=== PATIENT | male | born 1960 | race Caucasian/White ===

== ENCOUNTER → 2019-12-26 08:06 | Outpatient (BNVA) | payer OTHER, SELFPAY | PROVIDERS: Family Provider Family Medicine; PCP Family Medicine; Visit Provider Nurse Practitioner Psychiatric/Mental Health | DX: F33.1 Major depressive disorder, recurrent, moderate (principal); F41.1 Generalized anxiety disorder; G47.00 Insomnia, unspecified | CPT/HCPCS: 99213 ==

== ENCOUNTER → 2020-10-01 07:33 | Outpatient (BNVA) | payer OTHER, SELFPAY | PROVIDERS: Family Provider Family Medicine; PCP Family Medicine; Visit Provider Nurse Practitioner Psychiatric/Mental Health | DX: F33.42 Major depressive disorder, recurrent, in full remission (principal); F41.1 Generalized anxiety disorder; G47.00 Insomnia, unspecified | CPT/HCPCS: 99213 ==

== ENCOUNTER 2021-01-10 09:13 | Emergency (ER) | payer OTHER, SELFPAY ==
[2021-01-10 09:15] VITALS: BP 191/91; PULSE 82; RESP 16; TEMP 36.3; O2SAT 99; BMI 27.1
--- NOTE | 2021-01-10 09:38 | ED_ITS ---
HPI - General Adult General: Chief complaint: General Medical Stated complaint: High BP Time Seen by Provider: 01/10/21 09:16 History of Present Illness: HPI narrative: 60 yo make present with elevated BP and generally not feeelingwell - feels weird . Denies headache chest pain, changes in vision, no dyspnea. Previously been treated for blood pressure but was is no longer following, is not on any medication. Denies any chest pain or shortness of breath with it no localizing or focal neurologic symptoms no vision changes. Onset (ago): hour(s) Location: head Severity: mild Relieving factors: none Exacerbating factors: none Associated symptoms: Deny chest pain, confusion, cough, diaphoresis, decreased appetite, dyspnea, fevers/chills, headache(s), malaise, nausea, rash, palpitations, short of breath, syncope or vomiting Treatments prior to arrival: none Review of Systems Const: Denies: malaise ENMT: Denies: throat pain, ear or mastoid pain, nasal discharge or nasal congestion Card: Denies: chest pain, palpitations or syncope Resp: Denies: dyspnea GI: Denies: nausea or vomiting : Denies: flank pain, dysuria, urinary frequency or urinary urgency Skin/Breast: Denies: rash Neuro: Denies: headache(s) or confusion PFSH ED PFSH: Medical History Complaint of insomnia Generalized anxiety disorder Major depressive disorder in full remission Social History Smoking and tobacco status: former smoker Physical Exam Const: COMMON NORMALS: no acute distress GENERAL APPEARANCE: cooperative and comfortable ORIENTATION/CONSCIOUSNESS: Yes awake, Yes oriented to person, Yes oriented to place and Yes oriented to time HENMT: COMMON NORMALS: normocephalic, atraumatic and hearing grossly normal bilaterally HEAD & SCALP: normocephalic and atraumatic Neck/C-Spine: COMMON NORMALS: no JVD Resp: COMMON NORMALS: normal respiratory effort, No retractions, No use of accessory muscles and clear to auscultation bilaterally AUSCULTATION: clear to auscultation bilaterally Cardio: COMMON NORMALS: no JVD, regular rate, regular rhythm and No murmurs present (Cardio) RATE: regular rate RHYTHM: regular rhythm GI: COMMON NORMALS: Soft to palpation and No hepatosplenomegaly present AUSCULTATION: Yes normoactive bowel sounds PALPATION: Yes Soft to palpation, No Tenderness to palpation present (GI), No Guarding due to palpation present (GI) and Yes No hepatosplenomegaly present Extremity: COMMON NORMALS: normal to inspection, capillary refill normal, no clubbing, cyanosis or edema, no calf tenderness and no pedal edema Neuro: SENSORIUM/ORIENTATION: Yes oriented to person, Yes oriented to place and Yes oriented to time Skin: COMMON NORMALS: no rashes or lesions noted GENERAL SKIN EXAM: no rashes or lesions noted Course Vital Signs: Vital signs: Vital Signs Temperature 97.3 F L 01/10/21 09:15 Pulse Rate 77 01/10/21 12:44 Respiratory Rate 18 01/10/21 12:44 Blood Pressure 155/87 01/10/21 12:44 Pulse Oximetry 97 01/10/21 12:44 [facility] - General Adult Lab Data: Labs: Lab Results 01/10/21 01/10/21 01/10/21 Range/Units 09:58 09:58 09:58 WBC 4.3 (4.0-10.0) 10^3/ uL RBC 4.59 (4.1-5.3) 10^6/u L Hgb 14.1 (11.7-16.6) g/dL Hct 42.6 (42.0-52.0) % MCV 92.8 (80-94) fL MCH 30.7 (28.0-34.0) pg MCHC 33.1 (30.0-36.0) g/dL RDW 12.4 (12.1-15.1) % Plt Count 303 (130-400) 10^3/c mm MPV 9.0 (7.4-10.4) fL Neut % (Auto) 57.4 % Lymph % (Auto) 24.0 % [place] % (Auto) 11.3 % Eos % (Auto) 6.4 % Baso % (Auto) 0.9 % Neut # (Auto) 2.44 (1.8-7.7) 10^3/u L Lymph # (Auto) 1.0 (0.8-4.8) 10^3/u L [place] # (Auto) 0.5 (0.2-0.9) 10^3/u L Eos # (Auto) 0.3 (0.0-0.8) 10^3/u L Baso # (Auto) 0.0 (0.0-0.1) 10^3/u L Nucleated RBC % (a uto) 0 % Nucleated RBCs # 0.0 /100WBC Sodium 138 (136-145) mmol/L Potassium 4.3 (3.5-5.1) mmol/L Chloride 102 (98-107) mmol/L Carbon Dioxide 26 (22-29) mmol/L Anion Gap 14.3 (5-19) BUN 15 (6-20) mg/dL Creatinine 0.8 (0.7-1.2) mg/dL GFR Calculation 98.9 (90-130) mL/min Glucose 103 (65-115) mg/dL Calculated Osmolal ity 287 (285-295) mOsm/k g Calcium 9.1 (8.5-10.5) mg/dL Total Bilirubin 0.3 (0.15-1.2) mg/dL AST 18 (0-40) U/L ALT 19 (0-41) U/L Alkaline Phosphata se 105 (40-130) IU/L Troponin T Baselin e 6 (0-15) ng/L Troponin T 120 Min g[place] (0-15) ng/L Delta Troponin T (0-10) ABS# Total Protein 6.8 (6.6-8.7) g/dL Albumin 4.5 (3.5-5.2) g/dL Globulin 2.3 (1.3-4.6) g/dL 01/10/21 Range/Units 12:00 WBC (4.0-10.0) 10^3/ uL RBC (4.1-5.3) 10^6/u L Hgb (11.7-16.6) g/dL Hct (42.0-52.0) % MCV (80-94) fL MCH (28.0-34.0) pg MCHC (30.0-36.0) g/dL RDW (12.1-15.1) % Plt Count (130-400) 10^3/c mm MPV (7.4-10.4) fL Neut % (Auto) % Lymph % (Auto) % [place] % (Auto) % Eos % (Auto) % Baso % (Auto) % Neut # (Auto) (1.8-7.7) 10^3/u L Lymph # (Auto) (0.8-4.8) 10^3/u L [place] # (Auto) (0.2-0.9) 10^3/u L Eos # (Auto) (0.0-0.8) 10^3/u L Baso # (Auto) (0.0-0.1) 10^3/u L Nucleated RBC % (a uto) % Nucleated RBCs # /100WBC Sodium (136-145) mmol/L Potassium (3.5-5.1) mmol/L Chloride (98-107) mmol/L Carbon Dioxide (22-29) mmol/L Anion Gap (5-19) BUN (6-20) mg/dL Creatinine (0.7-1.2) mg/dL GFR Calculation (90-130) mL/min Glucose (65-115) mg/dL Calculated Osmolal ity (285-295) mOsm/k g Calcium (8.5-10.5) mg/dL Total Bilirubin (0.15-1.2) mg/dL AST (0-40) U/L ALT (0-41) U/L Alkaline Phosphata se (40-130) IU/L Troponin T Baselin e (0-15) ng/L Troponin T 120 Min gissell 6.00 (0-15) ng/L Delta Troponin T 0 (0-10) ABS# Total Protein (6.6-8.7) g/dL Albumin (3.5-5.2) g/dL Globulin (1.3-4.6) g/dL Discharge Plan Discharge Patient Disposition: Home Clinical Impression: Benign essential HTN Condition: Stable Prescriptions: New amlodipine 5 mg tablet 5 mg PO DAILY Qty: 30 RF: 0 No Action naproxen sodium [Aleve] 220 mg tablet 220 - 440 mg PO PRN RF: 0 multivitamin Tablet 1 tab PO DAILY RF: 0 Elderberry Syrup See Rx Instructions .ROUTE .COMPLEX RF: 0 alprazolam 1 mg tablet 1 mg PO DAILY@20 RF: 0 Discharge Orders: Discharge ED (Routine); Ordered 03/06/21 Ordered By: Alex Wolf Referrals: Alex Wolf, DO [Primary Care Provider] - Discharge Diet: Usual diet Discharge Activity: Resume usual activity Patient Instructions: Opioid Safety Activity Restrictions/Additional Instructions: Follow-up with your primary care doctor within the week Coding Level of Care Code ED Military Science Instructor for Forrest Hodges
--- NOTE | 2021-01-10 09:42 | ECG_ITS ---
[facility] Test Date: 2021-01-10 Pat Name: Jayy Pierce Department: Room: Gender: Male Dovetail Machine Operator: : 1960 Requested By: Alex Lindsay Order Number: [id number] Reading MD: MAX ESQUIVEL Measurements Intervals [place] Rate: 81 P: MT: QRS: 42 QRSD: 94 T: 45 QT: 374 QTc: 435 Interpretive Statements SINUS RHYTHM POSSIBLE RIGHT VENTRICULAR CONDUCTION DELAY [RSR (QR) IN V1/V2] No previous ECG available for comparison Electronically Signed On 01-10-2021 18:45:45 VALIDATION SPECIALIST by MAX ESQUIVEL [id number]
--- NOTE | 2021-01-10 09:42 | XRR_ITS ---
PROCEDURE INFORMATION: Exam: XR Chest Exam date and time: 01/10/2021 9:52 AM Age: 60 years old Clinical indication: Chest pain; Additional info: Dyspnea/cough TECHNIQUE: Imaging protocol: XR of the chest Views: 1 view. COMPARISON: No relevant prior studies available. FINDINGS: Lungs: COPD, interstitial prominence, chronic granulomatous disease. Pleural spaces: No pleural effusion. Heart/Mediastinum: No cardiomegaly. Bones/joints: Degenerative change. XR/XR chest 1V portable [id number] IMPRESSION: COPD, interstitial prominence, chronic granulomatous disease.
[2021-01-10 09:45] VITALS: BP 167/94; PULSE 75; RESP 13; O2SAT 99
[2021-01-10] MEDS: amlodipine 5 mg Tablet PO (09:52)
[2021-01-10 09:58] VITALS: BP 154/119; PULSE 82; RESP 20; O2SAT 99
[2021-01-10 10:24] LABS: Basophils % 0.9 %; Eosinophils # 0.3 10^3/uL (0.0-0.8); Eosinophils % 6.4 %; Hematocrit 42.6 % (42.0-52.0); Hemoglobin 14.1 g/dL (11.7-16.6); Mean Corpuscular HGB Conc 33.1 g/dL (30.0-36.0); Mean Corpuscular Hemoglobin 30.7 pg (28.0-34.0); Mean Corpuscular Volume 92.8 fL (80-94); Monocytes # 0.5 10^3/uL (0.2-0.9); Monocytes % 11.3 %; Neutrophils # 2.44 10^3/uL (1.8-7.7); Neutrophils % 57.4 %; Nucleated Red Blood Cells % 0 %; Platelet Count 303 10^3/cmm (130-400); Red Blood Count 4.59 10^6/uL (4.1-5.3); Red Cell Distribution Width 12.4 % (12.1-15.1); White Blood Count 4.3 10^3/uL (4.0-10.0)
[2021-01-10 10:48] LABS: Alanine Aminotransferase 19 U/L (0-41); Albumin Level 4.5 g/dL (3.5-5.2); Alkaline Phosphatase 105 IU/L (40-130); Anion Gap 14.3 (5-19); Aspartate Amino Transferase 18 U/L (0-40); Blood Urea Nitrogen 15 mg/dL (6-20); Calcium 9.1 mg/dL (8.5-10.5); Carbon Dioxide 26 mmol/L (22-29); Chloride 102 mmol/L (98-107); Globulin 2.3 g/dL (1.3-4.6); Glomerular Filtration Rate 98.9 mL/min (90-130); Glucose 103 mg/dL (65-115); Osmolality Calculated 287 mOsm/kg (285-295); Potassium 4.3 mmol/L (3.5-5.1); Sodium 138 mmol/L (136-145); Total Bilirubin 0.3 mg/dL (0.15-1.2); Total Protein 6.8 g/dL (6.6-8.7)
[2021-01-10 10:50] LABS: Troponin(5th) Baseline 6 ng/L (0-15)
[2021-01-10 11:04] VITALS: BP 163/91; PULSE 68; RESP 20; O2SAT 97
--- NOTE | 2021-01-10 11:42 | ECG_ITS ---
[facility] Test Date: 2021-01-10 Pat Name: Jayy Pierce Department: Room: Gender: Male Event Technician: : 1960 Requested By: Alex Lindsay Order Number: [id number] Reading MD: MAX ESQUIVEL Measurements Intervals [place] Rate: 60 P: 78 MD: 168 QRS: 55 QRSD: 100 T: 57 QT: 398 QTc: 401 Interpretive Statements SINUS RHYTHM INCOMPLETE RIGHT BUNDLE BRANCH BLOCK [90+ ms QRS DURATION, TERMINAL R IN V1/V2, 40+ ms S IN I/aVL/V4/V5/V6] SEPTAL MYOCARDIAL INFARCTION , OF INDETERMINATE AGE [40+ ms Q WAVE IN V1/V2] Compared to ECG 01/10/2021 09:39:21 Incomplete right bundle-branch block now present Myocardial infarct finding now present Supraventricular rhythm no longer present Electronically Signed On 01-10-2021 18:47:25 FOREST FIRE PREVENTION MANAGER by MAX ESQUIVEL [id number]
[2021-01-10 12:04] VITALS: BP 162/87; PULSE 67; RESP 17; O2SAT 97
[2021-01-10 12:28] LABS: Troponin 5 2HR Delta 0 ABS# (0-10)
[2021-01-10 12:44] VITALS: BP 155/87; PULSE 77; RESP 18; O2SAT 97
== END 2021-01-10 12:44 | disposition home or self-care (01) ==
PROVIDERS: Emergency Provider Family Medicine; PCP Family Medicine
DX: I10 Essential (primary) hypertension (principal); Z87.891 Personal history of nicotine dependence
CPT/HCPCS: 36415; 71045; 80053; 84484; 85025; 93005; 99283

== ENCOUNTER → 2021-01-22 07:30 | Outpatient (BNVA) | payer OTHER, SELFPAY | PROVIDERS: Family Provider Family Medicine; PCP Family Medicine; Visit Provider Nurse Practitioner Psychiatric/Mental Health | DX: F31.81 Bipolar II disorder (principal); F41.1 Generalized anxiety disorder; G47.00 Insomnia, unspecified | CPT/HCPCS: 99214 ==

== ENCOUNTER → 2021-02-19 07:40 | Outpatient (BNVA) | payer OTHER, SELFPAY | PROVIDERS: PCP Family Medicine; Visit Provider Nurse Practitioner Psychiatric/Mental Health | DX: F31.81 Bipolar II disorder (principal); F41.1 Generalized anxiety disorder; G47.00 Insomnia, unspecified; Z03.89 Encounter for observation for other suspected diseases and conditions ruled out | CPT/HCPCS: 99214 ==

== ENCOUNTER → 2021-03-30 07:28 | Outpatient (BNVA) | payer OTHER, SELFPAY | PROVIDERS: PCP Family Medicine; Visit Provider Nurse Practitioner Psychiatric/Mental Health | DX: F31.81 Bipolar II disorder (principal); F41.1 Generalized anxiety disorder; G47.00 Insomnia, unspecified | CPT/HCPCS: 99214 ==

== ENCOUNTER 2021-09-19 13:40 | Emergency (ER) | payer OTHER, SELFPAY ==
[2021-09-19 13:53] VITALS: BP 177/111; PULSE 79; RESP 15; TEMP 36.7; O2SAT 98; BMI 26.0
--- NOTE | 2021-09-19 13:54 | ED_ITS ---
Documented by User: Teto Anaya MD 09/19/21 18:01 HPI - Chest Pain General: Chief Complaint: Chest Pain Stated Complaint: Chest Pain Time Seen by Provider: 09/19/21 13:53 History of Present Illness: HPI narrative: 61-year-old male presents with chest pain. States this started this morning. Describes burning-like sensation. Denies any lower extremity pain or swelling. Denies any radiation to the back. Is not exertional or pleuritic. Denies any fever cough or chills. Denies previous history of CAD. Review of Systems Narrative: - CONSTITUTIONAL: Denies weight loss, fever and chills. - HEENT: Denies changes in vision and hearing. - RESPIRATORY: Denies SOB and cough. - CV: As above - GI: Denies abdominal pain, nausea, vomiting and diarrhea. - : Denies dysuria and urinary frequency. - MSK: Denies myalgia and joint pain. - SKIN: Denies rash and pruritus. - NEUROLOGICAL: Denies headache, weakness, numbness and syncope. - PSYCHIATRIC: Denies suicidal ideation [facility] ED PFSH: Medical History (Updated 09/19/21 @ 19:06 by Cuba Smith DO) Bipolar II disorder Mixed episodes Complaint of insomnia Generalized anxiety disorder Psychiatric care Social History Smoking and tobacco status: former smoker Physical Exam Narrative: EXAM NARRATIVE: - GENERAL: Alert and oriented x 3. No acute distress. Well-nourished. - EYES: EOMI. Anicteric. - HENT: Atraumatic, no C-spine tenderness. Moist mucous membranes. No scleral icterus. No cervical lymphadenopathy. - LUNGS: Clear to auscultation bilaterally. No accessory muscle use. Equal lung sounds bilaterally. No respiratory distress. - CARDIOVASCULAR: Regular rate and rhythm. No murmur. No JVD. - ABDOMEN: Soft, non-tender and non-distended. Negative CVA tenderness bilaterally, no rebound or guarding, negative Kennedy sign. No palpable masses. - EXTREMITIES: No edema. Non-tender. - SKIN: No rashes or lesions. Warm. - NEUROLOGIC: No meningismus or focal neurological deficits. CN II-XII grossly intact. - PSYCHIATRIC: Anxious Course Vital Signs: Vital signs: Vital Signs Temperature 98.0 F 09/19/21 13:53 Pulse Rate 62 09/19/21 17:36 Respiratory Rate 16 09/19/21 17:36 Blood Pressure 148/92 09/19/21 17:36 Pulse Oximetry 97 09/19/21 17:36 MDM - Chest Pain MDM Narrative: Medical decision making narrative: 61-year-old male presents due to chest pain. Physical exam unremarkable. Patient is hemodynamically stable afebrile nontoxic-appearing. Initial EKG and troponin do not reveal any sign of acute ischemia or other acute abnormality. Remainder of lab work is unremarkable. Second troponin is currently pending. X-ray does not reveal pneumothorax or consolidation. Patient signed out to Dr. Smith. Lab Data: Labs: Lab Results 09/19/21 09/19/21 09/19/21 14:45 14:45 14:45 WBC 5.1 10^3/uL 10^3/ uL (4.0-10.0) RBC 3.71 10^6/uL L 10 ^6/uL (4.1-5.3) Hgb 11.7 g/dL g/dL (11.7-16.6) Hct 34.4 % L % (42.0-52.0) MCV 92.7 fl fl (80-94) MCH 31.5 pg pg (28.0-34.0) MCHC 34.0 g/dL g/dL (30.0-36.0) RDW 12.5 % % (12.1-15.1) Plt Count 842 10^3/cmm H 10 ^3/cmm (130-400) MPV 9.3 fL fL (7.4-10.4) Neut % (Auto) 69.3 % % Lymph % (Auto) 20.5 % % [place] % (Auto) 8.8 % % Eos % (Auto) 0.6 % % Baso % (Auto) 0.6 % % Neut # (Auto) 3.56 10^3/uL 10^3 /uL (1.8-7.7) Lymph # (Auto) 1.1 10^3/uL 10^3/ uL (0.8-4.8) [place] # (Auto) 0.5 10^3/uL 10^3/ uL (0.2-0.9) Eos # (Auto) 0.0 10^3/uL 10^3/ uL (0.0-0.8) Baso # (Auto) 0.0 10^3/uL 10^3/ uL (0.0-0.1) Nucleated RBC % (a uto) 0 % % Nucleated RBCs # 0.0 /100WBC /100W BC D-Dimer <= 0.27 ug/mIFEU ug/mIFEU (0-0.59) Sodium Cancelled Potassium Cancelled Chloride Cancelled Carbon Dioxide Cancelled Anion Gap Cancelled BUN Cancelled Creatinine Cancelled GFR Calculation Cancelled Glucose Cancelled Calculated Osmolal ity Cancelled Calcium Cancelled Total Bilirubin Cancelled AST Cancelled ALT Cancelled Alkaline Phosphata se Cancelled Troponin T Baselin e Troponin T 120 Min [place] Delta Troponin T NT-Pro-B Natriuret Pep Cancelled Total Protein Cancelled Albumin Cancelled Globulin Cancelled Lipase Cancelled 09/19/21 09/19/21 09/19/21 14:45 15:54 15:54 WBC RBC Hgb Hct MCV MCH MCHC RDW Plt Count MPV Neut % (Auto) Lymph % (Auto) [place] % (Auto) Eos % (Auto) Baso % (Auto) Neut # (Auto) Lymph # (Auto) [place] # (Auto) Eos # (Auto) Baso # (Auto) Nucleated RBC % (a uto) Nucleated RBCs # D-Dimer Sodium 139 mmol/L mmol/L (136-145) Potassium 3.8 mmol/L mmol/L (3.5-5.1) Chloride 102 mmol/L mmol/L (98-107) Carbon Dioxide 24 mmol/L mmol/L (22-29) Anion Gap 16.8 (5-19) BUN 15 mg/dL mg/dL (8-23) Creatinine 0.7 mg/dL mg/dL (0.7-1.2) GFR Calculation 115.0 mL/min mL/m in (90-130) Glucose 109 mg/dL mg/dL (65-115) Calculated Osmolal ity 289 mOsm/kg mOsm/ kg (285-295) Calcium 9.3 mg/dL mg/dL (8.5-10.5) Total Bilirubin 0.5 mg/dL mg/dL (0.15-1.2) AST 13 U/L U/L (0-40) ALT 14 U/L U/L (0-41) Alkaline Phosphata se 108 IU/L IU/L (40-130) Troponin T Baselin e Cancelled 6 ng/L ng/L (0-15) Troponin T 120 Min [place] Delta Troponin T NT-Pro-B Natriuret Pep 23 pg/mL pg/mL (0-125) Total Protein 6.9 g/dL g/dL (6.6-8.7) Albumin 4.6 g/dL g/dL (3.5-5.2) Globulin 2.3 g/dL g/dL (1.3-4.6) Lipase 20 U/L U/L (13-60) 09/19/21 17:51 WBC RBC Hgb Hct MCV MCH MCHC RDW Plt Count MPV Neut % (Auto) Lymph % (Auto) [place] % (Auto) Eos % (Auto) Baso % (Auto) Neut # (Auto) Lymph # (Auto) [place] # (Auto) Eos # (Auto) Baso # (Auto) Nucleated RBC % (a uto) Nucleated RBCs # D-Dimer Sodium Potassium Chloride Carbon Dioxide Anion Gap BUN Creatinine GFR Calculation Glucose Calculated Osmolal ity Calcium Total Bilirubin AST ALT Alkaline Phosphata se Troponin T Baselin e Troponin T 120 Min douglas 6.53 ng/L ng/L (0-15) Delta Troponin T 0.53 ABS# ABS# (0-10) NT-Pro-B Natriuret Pep Total Protein Albumin Globulin Lipase EKG Data^: EKG 1: Other EKG comments: Normal sinus rhythm, rate of 79, incomplete right bundle branch block, no sign of acute ischemia or other acute abnormality. Discharge Plan Discharge Patient Disposition: Home Clinical Impression: Chest pain Qualifiers: Chest pain type: unspecified Qualified Code(s): R07.9 - Chest pain, unspecified Condition: Stable Prescriptions: New Prevacid 30 mg capsule,delayed release(DR/EC) 30 mg PO DAILY Qty: 30 RF: 0 No Action naproxen sodium [Aleve] 220 mg tablet 220 - 440 mg PO BID PRN (Reason: Pain) RF: 0 alprazolam 0.5 mg tablet 0.5 mg PO BID PRN (Reason: anxiety) Qty: 60 RF: 3 multivitamin Tablet 1 tab PO DAILY RF: 0 atorvastatin 10 mg tablet 10 mg PO DAILY RF: 0 clonidine HCl 0.2 mg tablet 0.2 mg PO BID PRN (Reason: Blood Pressure) RF: 0 methocarbamol 750 mg tablet 750 mg PO TID PRN (Reason: Pain) RF: 0 amlodipine 10 mg tablet 10 mg PO DAILY RF: 0 Discharge Orders: Discharge ED (Routine); Ordered 09/19/21 Ordered By: Cuba Smith Referrals: Alex Wolf DO [Primary Care Provider] - Patient Instructions: Chest Pain (ED) Activity Restrictions/Additional Instructions: Work-up in the emergency department today did not reveal a cause of your chest pain. Potential of a heart attack was evaluated, and was found to be not the cause. You also screened negative for a blood clot to your lung, pneumonia, a hole in your lung, etc. In some of these cases, chest discomfort may be related to your gastrointestinal system. Medication has been prescribed for this. Case management referral has been made to set up an outpatient stress test for your heart. Return for change in or worsening chest pain, worsening shortness of breath, any other concerning symptoms in the meantime. Coding Level of Care Code ED Registered Mail Clerk for Chg Fwd Documented by User: Cuba Smith DO 09/19/21 19:08 HPI - Chest Pain General: Chief Complaint: Chest Pain Stated Complaint: Chest Pain Time Seen by Provider: 09/19/21 13:53 [facility] ED PFSH: Medical History (Updated 09/19/21 @ 19:06 by Cuba Smith DO) Bipolar II disorder Mixed episodes Complaint of insomnia Generalized anxiety disorder Psychiatric care Social History Smoking and tobacco status: former smoker Course Vital Signs: Vital signs: Vital Signs Temperature 98.0 F 09/19/21 13:53 Pulse Rate 62 09/19/21 17:36 Respiratory Rate 16 09/19/21 17:36 Blood Pressure 148/92 09/19/21 17:36 Pulse Oximetry 97 09/19/21 17:36 MDM - Chest Pain MDM Narrative: Medical decision making narrative: 61-year-old male checked out to me by the previous physician at shift change. This gentleman has nonexertional chest discomfort. It is somewhat atypical in nature. His EKGs showed no acute ST changes. His troponin at 2 hours did not move, and remains normal. He will be allowed discharge Lab Data: Labs: Lab Results 09/19/21 09/19/21 09/19/21 14:45 14:45 14:45 WBC 5.1 10^3/uL 10^3/ uL (4.0-10.0) RBC 3.71 10^6/uL L 10 ^6/uL (4.1-5.3) Hgb 11.7 g/dL g/dL (11.7-16.6) Hct 34.4 % L % (42.0-52.0) MCV 92.7 fl fl (80-94) MCH 31.5 pg pg (28.0-34.0) MCHC 34.0 g/dL g/dL (30.0-36.0) RDW 12.5 % % (12.1-15.1) Plt Count 842 10^3/cmm H 10 ^3/cmm (130-400) MPV 9.3 fL fL (7.4-10.4) Neut % (Auto) 69.3 % % Lymph % (Auto) 20.5 % % [place] % (Auto) 8.8 % % Eos % (Auto) 0.6 % % Baso % (Auto) 0.6 % % Neut # (Auto) 3.56 10^3/uL 10^3 /uL (1.8-7.7) Lymph # (Auto) 1.1 10^3/uL 10^3/ uL (0.8-4.8) [place] # (Auto) 0.5 10^3/uL 10^3/ uL (0.2-0.9) Eos # (Auto) 0.0 10^3/uL 10^3/ uL (0.0-0.8) Baso # (Auto) 0.0 10^3/uL 10^3/ uL (0.0-0.1) Nucleated RBC % (a uto) 0 % % Nucleated RBCs # 0.0 /100WBC /100W BC D-Dimer <= 0.27 ug/mIFEU ug/mIFEU (0-0.59) Sodium Cancelled Potassium Cancelled Chloride Cancelled Carbon Dioxide Cancelled Anion Gap Cancelled BUN Cancelled Creatinine Cancelled GFR Calculation Cancelled Glucose Cancelled Calculated Osmolal ity Cancelled Calcium Cancelled Total Bilirubin Cancelled AST Cancelled ALT Cancelled Alkaline Phosphata se Cancelled Troponin T Baselin e Troponin T 120 Min [place] Troponin T NT-Pro-B Natriuret Pep Cancelled Total Protein Cancelled Albumin Cancelled Globulin Cancelled Lipase Cancelled 09/19/21 09/19/21 09/19/21 14:45 15:54 15:54 WBC RBC Hgb Hct MCV MCH MCHC RDW Plt Count MPV Neut % (Auto) Lymph % (Auto) [place] % (Auto) Eos % (Auto) Baso % (Auto) Neut # (Auto) Lymph # (Auto) [place] # (Auto) Eos # (Auto) Baso # (Auto) Nucleated RBC % (a uto) Nucleated RBCs # D-Dimer Sodium 139 mmol/L mmol/L (136-145) Potassium 3.8 mmol/L mmol/L (3.5-5.1) Chloride 102 mmol/L mmol/L (98-107) Carbon Dioxide 24 mmol/L mmol/L (22-29) Anion Gap 16.8 (5-19) BUN 15 mg/dL mg/dL (8-23) Creatinine 0.7 mg/dL mg/dL (0.7-1.2) GFR Calculation 115.0 mL/min mL/m in (90-130) Glucose 109 mg/dL mg/dL (65-115) Calculated Osmolal ity 289 mOsm/kg mOsm/ kg (285-295) Calcium 9.3 mg/dL mg/dL (8.5-10.5) Total Bilirubin 0.5 mg/dL mg/dL (0.15-1.2) AST 13 U/L U/L (0-40) ALT 14 U/L U/L (0-41) Alkaline Phosphata se 108 IU/L IU/L (40-130) Troponin T Baselin e Cancelled 6 ng/L ng/L (0-15) Troponin T 120 Min [place] Troponin T NT-Pro-B Natriuret Pep 23 pg/mL pg/mL (0-125) Total Protein 6.9 g/dL g/dL (6.6-8.7) Albumin 4.6 g/dL g/dL (3.5-5.2) Globulin 2.3 g/dL g/dL (1.3-4.6) Lipase 20 U/L U/L (13-60) 09/19/21 17:51 WBC RBC Hgb Hct MCV MCH MCHC RDW Plt Count MPV Neut % (Auto) Lymph % (Auto) [place] % (Auto) Eos % (Auto) Baso % (Auto) Neut # (Auto) Lymph # (Auto) [place] # (Auto) Eos # (Auto) Baso # (Auto) Nucleated RBC % (a uto) Nucleated RBCs # D-Dimer Sodium Potassium Chloride Carbon Dioxide Anion Gap BUN Creatinine GFR Calculation Glucose Calculated Osmolal ity Calcium Total Bilirubin AST ALT Alkaline Phosphata se Troponin T Baselin e Troponin T 120 Min d[place]las 6.53 ng/L ng/L (0-15) Delta Troponin T 0.53 ABS# ABS# (0-10) NT-Pro-B Natriuret Pep Total Protein Albumin Globulin Lipase Discharge Plan Discharge Patient Disposition: Home Clinical Impression: Chest pain Qualifiers: Chest pain type: unspecified Qualified Code(s): R07.9 - Chest pain, unspecified Condition: Stable Prescriptions: New Prevacid 30 mg capsule,delayed release(DR/EC) 30 mg PO DAILY Qty: 30 RF: 0 No Action naproxen sodium [Aleve] 220 mg tablet 220 - 440 mg PO BID PRN (Reason: Pain) RF: 0 alprazolam 0.5 mg tablet 0.5 mg PO BID PRN (Reason: anxiety) Qty: 60 RF: 3 multivitamin Tablet 1 tab PO DAILY RF: 0 atorvastatin 10 mg tablet 10 mg PO DAILY RF: 0 clonidine HCl 0.2 mg tablet 0.2 mg PO BID PRN (Reason: Blood Pressure) RF: 0 methocarbamol 750 mg tablet 750 mg PO TID PRN (Reason: Pain) RF: 0 amlodipine 10 mg tablet 10 mg PO DAILY RF: 0 Discharge Orders: Discharge ED (Routine); Ordered 09/19/21 Ordered By: Cuba Smith Referrals: Alex Wolf DO [Primary Care Provider] - Patient Instructions: Chest Pain (ED) Activity Restrictions/Additional Instructions: Work-up in the emergency department today did not reveal a cause of your chest pain. Potential of a heart attack was evaluated, and was found to be not the cause. You also screened negative for a blood clot to your lung, pneumonia, a hole in your lung, etc. In some of these cases, chest discomfort may be related to your gastrointestinal system. Medication has been prescribed for this. Case management referral has been made to set up an outpatient stress test for your heart. Return for change in or worsening chest pain, worsening shortness of breath, any other concerning symptoms in the meantime. Coding Level of Care Code ED Registered Mail Clerk for Forrest Hodges
--- NOTE | 2021-09-19 14:00 | XRR_ITS ---
PROCEDURE INFORMATION: Exam: XR Chest Exam date and time: 09/19/2021 2:00 PM Age: 61 years old Clinical indication: Pain; Chest pressure; Additional info: Cp TECHNIQUE: Imaging protocol: XR of the chest. Views: 1 view. COMPARISON: CR (CHEST, ) 01/10/2021 9:54 AM FINDINGS: Lungs: There are pulmonary parenchymal calcifications consistent with remote granulomatous organism exposure. Pleural spaces: Unremarkable. No pleural effusion. No pneumothorax. Heart/Mediastinum: Unremarkable. No cardiomegaly. Diaphragm: Mild elevation of the left hemidiaphragm. Bones/joints: Unremarkable. XR/XR chest 1V portable [id number] IMPRESSION: No evidence for acute cardiopulmonary disease. Radiation Dose CTDIVOL = (mGy): DLP = (mGy-cm)
--- NOTE | 2021-09-19 14:00 | ECG_ITS ---
[facility] Test Date: 2021-09-19 Pat Name: Jayy Pierce Department: Room: Gender: Male Handle Sewer: : 1960 Requested By: Teto Anaya Order Number: [id number] Rajput MD: Haley Crenshaw M.D. Measurements Intervals [place] Rate: 79 P: 152 ME: 170 QRS: 43 QRSD: 98 T: 79 QT: 380 QTc: 438 Interpretive Statements ECTOPIC ATRIAL RHYTHM POSSIBLE RIGHT VENTRICULAR CONDUCTION DELAY [RSR (QR) IN V1/V2] Compared to ECG 01/10/2021 11:33:03 Ectopic atrial rhythm now present Sinus rhythm no longer present Incomplete right bundle-branch block no longer present Myocardial infarct finding no longer present Electronically Signed On 09-20-2021 13:16:11 [employer]AL [employer]HER by Haley Crenshaw M.D. [id number]
[2021-09-19] MEDS: labetalol 5 mg/mL SDV 20mL 10 MG IVP (14:45)
[2021-09-19] MEDS: hyDROXYzine 25 mg Capsule PO (14:45)
[2021-09-19] MEDS: lidocaine 2% viscous 15 ML, aluminum-mag hydrox-simethicon 30 ML, sucralfate oral liq 1 GM PO (14:45)
[2021-09-19] MEDS: aspirin 81 mg Chew Tablet 324 MG PO (14:45)
[2021-09-19 14:47] VITALS: BP 130/77; PULSE 67; RESP 17; O2SAT 96
[2021-09-19 14:59] LABS: Basophils % 0.6 %; Eosinophils % 0.6 %; Hematocrit 34.4 % (42.0-52.0); Hemoglobin 11.7 g/dL (11.7-16.6); Lymphocytes # 1.1 10^3/uL (0.8-4.8); Lymphocytes % 20.5 %; Mean Corpuscular Hemoglobin 31.5 pg (28.0-34.0); Mean Corpuscular Volume 92.7 fl (80-94); Mean Platelet Volume 9.3 fL (7.4-10.4); Monocytes # 0.5 10^3/uL (0.2-0.9); Monocytes % 8.8 %; Neutrophils # 3.56 10^3/uL (1.8-7.7); Neutrophils % 69.3 %; Nucleated Red Blood Cells % 0 %; Platelet Count 842 10^3/cmm (130-400); Red Blood Count 3.71 10^6/uL (4.1-5.3); Red Cell Distribution Width 12.5 % (12.1-15.1); White Blood Count 5.1 10^3/uL (4.0-10.0)
[2021-09-19 15:13] LABS: D Dimer <= 0.27 ug/mIFEU (0-0.59)
--- NOTE | 2021-09-19 16:00 | ECG_ITS ---
[facility] Test Date: 2021-09-19 Pat Name: Jayy Pierce Department: Room: Gender: Male [place] Tier: : 1960 Requested By: Teto Anaya Order Number: [id number] Rajput MD: Haley Crenshaw M.D. Measurements Intervals [place] Rate: 58 P: 86 [place]: 166 QRS: 45 QRSD: 102 T: 49 QT: 414 QTc: 408 Interpretive Statements SINUS BRADYCARDIA POSSIBLE RIGHT VENTRICULAR CONDUCTION DELAY [RSR (QR) IN V1/V2] Compared to ECG 01/10/2021 11:33:03 Sinus rhythm no longer present Incomplete right bundle-branch block no longer present Myocardial infarct finding no longer present Electronically Signed On 09-20-2021 13:25:18 PANEL SEWER by Haley Crenshaw M.D. [id number] f
[2021-09-19 16:23] LABS: Troponin(5th) Baseline 6 ng/L (0-15)
[2021-09-19 16:32] LABS: Alanine Aminotransferase 14 U/L (0-41); Albumin Level 4.6 g/dL (3.5-5.2); Alkaline Phosphatase 108 IU/L (40-130); Anion Gap 16.8 (5-19); Aspartate Amino Transferase 13 U/L (0-40); Blood Urea Nitrogen 15 mg/dL (8-23); Calcium 9.3 mg/dL (8.5-10.5); Carbon Dioxide 24 mmol/L (22-29); Chloride 102 mmol/L (98-107); Globulin 2.3 g/dL (1.3-4.6); Glucose 109 mg/dL (65-115); Lipase 20 U/L (13-60); NT Pro B Type Natriuretic Pept 23 pg/mL (0-125); Osmolality Calculated 289 mOsm/kg (285-295); Potassium 3.8 mmol/L (3.5-5.1); Sodium 139 mmol/L (136-145); Total Bilirubin 0.5 mg/dL (0.15-1.2); Total Protein 6.9 g/dL (6.6-8.7)
--- NOTE | 2021-09-19 17:28 | PC.NURSE ---
while at bedside assumed care of pt.
--- NOTE | 2021-09-19 17:35 | PC.NURSE ---
pt is on continuous spo2, nibp, and cm.
[2021-09-19 17:36] VITALS: BP 148/92; PULSE 62; RESP 16; O2SAT 97
[2021-09-19 18:18] LABS: Troponin 5 2HR 6.53 ng/L (0-15); Troponin 5 2HR Delta 0.53 ABS# (0-10)
--- NOTE | 2021-09-19 19:01 | PC.NURSE ---
report given to kathleen vieira assumed care.
[2021-09-19 19:16] VITALS: BP 134/88; PULSE 70; RESP 17; O2SAT 97
--- NOTE | 2021-09-21 12:44 | DCPLANNER ---
Addendum entered by Mattie Johnson 09/21/21 12:53: hydro generation manager called patient to confirm who patient sees for primary care. hydro generation manager called phone number [phone], unable to speak with patient at this time, and unable to leave a voicemail due to mailbox being full. Original Note: hydro generation manager had message to schedule an out patient stress test for patient. hydro generation manager faxed signed order to centralized scheduling, who will call patient with appointment information.
== END 2021-09-19 19:17 | disposition home or self-care (01) ==
PROVIDERS: Emergency Medicine; Emergency Provider Emergency Medicine; PCP Family Medicine
DX: R07.9 Chest pain, unspecified (principal); Z87.891 Personal history of nicotine dependence
CPT/HCPCS: 71045; 80053; 83690; 83880; 84484; 85025; 85378; 93005; 96374; 99284; J3490

== ENCOUNTER 2023-10-26 16:30 | Outpatient (CLI) | payer OTHER, SELFPAY ==
--- NOTE | 2023-10-26 16:39 | XRR_ITS ---
PROCEDURE INFORMATION: Exam: XR Right Hand Exam date and time: 10/26/2023 4:48 PM Age: 63 years old Clinical indication: Pain and injury or trauma; Fall; Blunt trauma (contusions or hematomas); Hand; Right; Injury date: 3 days ago; Additional info: Right hand pain TECHNIQUE: Imaging protocol: Radiologic exam of the right hand. Views: 3 or more views. COMPARISON: No relevant prior studies available. FINDINGS: Bones/joints: Normal. Soft tissues: Normal. XR/XR hand RT min 3V* [id number] IMPRESSION: No acute findings.
--- NOTE | 2023-10-26 16:39 | XRR_ITS ---
PROCEDURE INFORMATION: Exam: XR Left Shoulder Exam date and time: 10/26/2023 4:48 PM Age: 63 years old Clinical indication: Pain and injury or trauma; Fall; Blunt trauma (contusions or hematomas); Shoulder; Left; Injury date: 3 days ago; Additional info: Left shoulder pain TECHNIQUE: Imaging protocol: Radiologic exam of the left shoulder. Views: 2 or more views. COMPARISON: No relevant prior studies available. FINDINGS: Bones/joints: Normal. Soft tissues: Normal. XR/XR shoulder LT min 2V* [id number] IMPRESSION: No acute findings.
== END 2023-10-26 16:31 | disposition home or self-care (01) ==
LOC: RAD 16:34
PROVIDERS: PCP Family Medicine; Visit Provider Nurse Practitioner Family
DX: M25.512 Pain in left shoulder (principal); M79.641 Pain in right hand; W19.XXXA Unspecified fall, initial encounter
CPT/HCPCS: 73030; 73130

== ENCOUNTER 2024-04-09 15:55 | Outpatient (CLI) | payer OTHER, SELFPAY ==
--- NOTE | 2024-04-09 16:04 | XR_ITS ---
WS: [id number] XR cervical spine min 6V [id number] REASON FOR EXAM: NECK PAIN, CHRONIC FINDINGS: Mild straightening of the upper portion of the normal lordosis of the cervical spine. No focal vertebral body abnormality No posterior spinous processes are present C4-C7. Moderate narrowing of the intervertebral disc spaces at C5-C6 C6-C7 and C7-T1. Mild/moderate anterior and uncinate osteophytosis in this segment of cervical spine. 3. Mm anterolisthesis of C4 on C5 in the neutral position. This listhesis does not appear to change s ignificantly with flexion or extension. There are moderate degenerative changes in the facet joints C4-C7. There is mild to moderate bony narrowing of the neural foramina bilaterally C4-C5 most significant at C5-C6 and C6-C7. XR/XR cervical spine min 6V [id number] IMPRESSION: Cervical degenerative spondylosis as above.
--- NOTE | 2024-04-09 16:12 | XR_ITS ---
WS: [id number] XR shoulder RT min 2V* [id number] REASON FOR EXAM: PAIN IN RIGHT SHOULDER FINDINGS: No fracture or focal bone lesion. Moderate narrowing of the acromioclavicular joint with mild subchondral sclerosis and osteophytosis. Glenohumeral joint space is not optimally demonstrated. There appears to be mild/moderate narrowing o f the joint space with mild subchondral sclerosis of the glenoid. Minimal sclerosis and cystic change in the greater tuberosity. 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 Mild to moderate osteoarthritis in the glenohumeral joint. Minimal rotator cuff tendon arthropathy.
== END 2024-04-09 15:56 | disposition home or self-care (01) ==
LOC: RAD 15:58
PROVIDERS: PCP Nurse Practitioner Family; Visit Provider Nurse Practitioner Family
DX: M19.011 Primary osteoarthritis, right shoulder (principal); M48.03 Spinal stenosis, cervicothoracic region; M25.78 Osteophyte, vertebrae; M47.812 Spondylosis without myelopathy or radiculopathy, cervical region; Z87.39 Personal history of other diseases of the musculoskeletal system and connective tissue
CPT/HCPCS: 72052; 73030